=== PATIENT | male | born 1965 | race Hispanic/Latino ===

== ENCOUNTER 2024-01-22 10:06 | Emergency (ER) | payer SELFPAY ==
[2024-01-22 10:08] VITALS: BP 133/83
[2024-01-22 10:24] VITALS: BMI 39.7
[2024-01-22 10:25] VITALS: BP 123/81
--- NOTE | 2024-01-22 10:27 | PTCARENOTE ---
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 Pt stated he suffered an IA 2 weeks ago in [place]. While in an [place] hospital, cardiac cath performed and stent placed. Pt has been living with his daughter who resides in [place].
Discharge instructions from hospital within [place] stated to follow up with emergency room in 2 weeks.
--- NOTE | 2024-01-22 10:59 | ED.GENMED ---
History of Present Illness
General
Chief Complaint: Cardiac Symptoms
Time Seen by Provider: 01/22/24 10:34
Travel History
Have you had any contact with someone who has COVID-19?: No
Do you have any symptoms of coronavirus? Fever > 100 degrees, chills, cough, shortness of breath, sore throat, loss of taste or smell, muscle aches, or headache?: No
History of Present Illness
History of Present Illness:
58-year-old male presents to the emergency department as a follow-up after recent myocardial infarction. 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 Driving through [place] recently he sustained a myocardial
infarction and was admitted to [facility] where he had 1 cardiac stent placed. At the time of his discharge it was recommended to him that he seek out emergency medicine follow-up in 1 week to help establish primary care and
cardiology follow-up. Patient has no health insurance. He arrives here today as he is currently staying with his daughter. He is also concerned that he is not cleared for return to [place] driving. He denies any acute medical complaints today
Review of Systems
Review of Systems
Allergies reviewed?: Yes
All Other Systems: ROS reviewed and negative except as documented in HPI and ROS
Phy Exam
Physical Exam
Physical Exam:
GEN: Well appearing, NAD, WDWN
HEENT: Oral mucosa moist, no scleral icterus
Cardiac: Regular rate
Lung: No respiratory distress, no tachypnea
MSK: No gross deformity or injuries
Skin: Good color, no pallor or jaundice, no rashes
Neuro: AO x3, moves all extremities freely
Psych: Calm, cooperative
Course
Orders/Labs/Results
Orders:
Orders
01/22/24 10:50
Case Management Consult ONCE
Case Management Consult: Other
Comment: Medical insurance assistance
Vital Signs
Initial and Last Documented VS:
Initial Vital Signs
Temp Pulse Resp BP Pulse Ox
98.4 F 73 18 133/83 98
01/22/24 10:08 01/22/24 10:08 01/22/24 10:08 01/22/24 10:08 01/22/24 10:08
Last Documented Vital Signs
Temp Pulse Resp BP Pulse Ox
98.4 F 69 18 123/81 98
01/22/24 10:25 01/22/24 10:25 01/22/24 10:25 01/22/24 10:25 01/22/24 10:25
MDM/Problems Addressed
MDM/Problems Addressed:
Patient has no acute complaints, no indication for labs. He was given a 30-day supply of medications from [facility] in the rehab elicits time of discharge. Case management saw the patient and provided him with resources for both the
[facility] clinic as well as the family service worker clinic. The patient has information already for medical assistance/Medicaid. He is encouraged to follow-up as directed for further medication refills and attempt to establish
insurance in any way that he can. 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
*Critical Care Note
Total Time (30-74mins, 75-104mins- exclusive of procedures): Not Applicable
ED Attending Note
-
Portions of this chart may have been created with voice recognition software.� Occasional wrong word or��sound alike� substitutions may have occurred due to the inherent limitations of voice recognition software.
Discharge Plan
Departure
Patient Disposition: Home (Routine Discharge)
Date of Disposition: 01/22/24
Time of Disposition: 11:52
Patient with high blood pressure during this ER visit?: No
Discharge Problem:
Coronary artery disease
Instructions: Coronary Artery Disease (DC)
Referrals:
Dm Echols MD [Active] -
UNKNOWN - PT DOES,NOT KNOW [Family Provider] -
Activity Restrictions/Additional Instructions:
[facility]
[address]
[place], [address]
[phone]
Interventions
Interventions:
*Risk Screen - Suicide Last Done: 01/22/24 10:12
*General Assessment Last Done: 01/22/24 10:12
*Neglect/Abuse Screening Last Done: 01/22/24 10:12
ED- Pulmonary Assessment Last Done: 01/22/24 10:21
ED- Cardiac Assessment Last Done: 01/22/24 10:21
Discharge Date and Time
Print Language: LUXEMBOURGISH
--- NOTE | 2024-01-22 11:25 | CM ---
Cm met with patient and daughter in room. 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 He does have a [place] address and is currently staying with his daughter in [place]. Patient does not have
insurance at this time. Patient was recently at an [facility] where he was treated for an PR. Patient traveled from [place] to [place] as he was advised to stay with a family member or friend. He also was advised to not drive. Patient plans
to stay in [place] for a month.
CM provided patient and daughter with written resources for the [facility], [facility]. Patient was also given coupons from [employer] and [employer] [facility] for assistance with his medications. Patient's daughter is very supportive and will
follow up with [facility].
Patient was also given written information on [facility] Financial Assistance Program.
John updated patient's ED PA.
== END 2024-01-22 12:41 | disposition home or self-care (01) ==
LOC: EMR 10:06
PROVIDERS: EMERGENCY PHYSICIAN Emergency Medicine
DX: I25.10 Atherosclerotic heart disease of native coronary artery without angina pectoris (principal); Z95.5 Presence of coronary angioplasty implant and graft
CPT/HCPCS: 99283